=== PATIENT | female | born 1990 | race Caucasian/White ===

== ENCOUNTER 2021-03-22 10:57 | Outpatient (CLI) | payer OTHER ==
[~2021-03-22 10:57] MED LIST: [UNRECOGNIZED DRUG - REMARK]
== END 2021-03-22 23:59 | disposition home or self-care (01) ==
LOC: CARD 10:57
PROVIDERS: ATTEND Nuclear Medicine Nuclear Cardiology
DX: R07.9 Chest pain, unspecified (principal)
CPT/HCPCS: 93017